=== PATIENT | female | born 1960 | race Caucasian/White ===

== ENCOUNTER 2024-11-09 08:39 | Emergency (ER) | payer MEDICARE, OTHER, SELFPAY ==
[2024-11-09] VITALS (10 sets, daily range): BP systolic 183–237; BP diastolic 91–112; PULSE 66–85; RESP 18; TEMP 36.9; O2SAT 95–98; BMI 37.8
--- NOTE | 2024-11-09 09:57 | ED_ITS ---
HPI - URI/Sore Throat General Chief Complaint: Upper Respiratory Symptoms Stated Complaint: COUGH/CONGESTED Time Seen by Provider: 11/09/24 09:47 Source: patient Mode of arrival: Ambulatory History of Present Illness HPI Narrative: Patient here with . Complaints of cough cold congestion runny nose for the past 2 nights. was sick with the same symptoms and has resolved. Patient and are traveling through. Blood pressure noted. She has been taking [id number] cold medications. Denies any chest pain shortness of breath. Patient states at her primary care they usually do manual blood pressure Related Data Previous Rx's Medication Instructions Recorded albuterol sulfate 90 mcg/actuation 2 inhalation inhalation QID PRN 11/09/24 aerosol inhaler (Ventolin HFA) shortness of breath or wheezing #6.7 grams benzonatate 100 mg capsule 100 mg PO TID PRN cough #20 caps 11/09/24 fluticasone propionate 50 1 spray intranasal BID #16 grams 11/09/24 mcg/actuation nasal spray,suspension (Flonase Allergy Relief) Allergies Allergy/AdvReac Type Severity Reaction Status Date / Time No Known Drug Allergies Allergy Verified 11/09/24 09:08 Review of Systems Review of Systems Narrative: GENERAL: Negative chills, fatigue, malaise, fever, sweats. HEENT: Positive runny nose and sinus pain, negative ear pain, sore throat RESPIRATORY: Negative dyspnea, positive cough CARDIOVASCULAR: Negative chest pain, palpitations GASTROINTESTINAL: Negative vomiting, nausea, abdominal pain : Negative dysuria, frequency, hematuria MUSCULOSKELETAL: Negative muscle or bony pain SKIN: Negative rash, skin lesions NEUROLOGIC: Negative weakness, numbness ROS Unobtainable: All systems reviewed & are unremarkable except as noted in HPI and below Patient History Social History Smoking Status: Never smoker Smoking Status: Never smoker Exam Narrative Exam Narrative: GENERAL: in no distress, not toxic not dyspneic HEAD: Normocephalic. EYES: Pupils equal round ENT: Mucous membranes moist. Boggy erythematous bilateral nasal passages with clear rhinorrhea, patient sounds congested NECK: Trachea midline. CARDIOVASCULAR: Regular rate and rhythm RESPIRATORY: Clear to auscultation. Breath sounds equal bilaterally. No wheezes, rales, or rhonchi. GASTROINTESTINAL: Abdomen soft, non-tender EXTREMITIES: No gross deformities. BACK: No flank tenderness. NEURO: AOx4. Clear speech SKIN: Warm and dry PSYCH: Not anxious, is cooperative Initial Vital Signs Initial Vital Signs: Vital Signs Pulse Rate 85 11/09/24 08:59 Pulse Oximetry 95 11/09/24 08:59 Course Orders Ordered: Discontinued Medications Benzonatate (Benzonatate 100 Mg Capsule) 100 mg PO NOW ONE Stop: 11/09/24 09:59 Last Admin: 11/09/24 10:24 Dose: 100 mg Documented By: PILY Hydralazine HCl (Hydralazine 10 Mg Tablet) 10 mg PO NOW ONE Stop: 11/09/24 10:42 Last Admin: 11/09/24 10:48 Dose: 10 mg Documented By: PILY Hydralazine HCl (Hydralazine 25 Mg Tablet) 25 mg PO NOW ONE Stop: 11/09/24 11:04 Last Admin: 11/09/24 11:39 Dose: 25 mg Documented By: KEYONA Oxymetazoline HCl (Oxymetazoline Nasal [place] 30 Ml) 2 sprays NASAL NOW ONE Stop: 11/09/24 09:59 Last Admin: 11/09/24 10:23 Dose: 2 sprays Documented By: PILY Vital Signs Vital signs: Vital Signs - 8 hr 11/09/24 08:59 11/09/24 09:00 11/09/24 09:00 Temperature Pulse Rate 85 80 Respiratory Rate Blood Pressure 197/102 H Pulse Oximetry 95 95 Oxygen Delivery Method 11/09/24 09:05 11/09/24 09:30 11/09/24 09:30 Temperature 98.4 F Pulse Rate 80 71 Respiratory Rate 18 Blood Pressure 197/102 H 199/107 H Pulse Oximetry 95 95 Oxygen Delivery Method Room Air 11/09/24 10:00 11/09/24 10:00 11/09/24 10:30 Temperature Pulse Rate 68 68 Respiratory Rate Blood Pressure 204/100 H Pulse Oximetry 95 96 Oxygen Delivery Method 11/09/24 10:30 11/09/24 10:48 11/09/24 11:00 Temperature Pulse Rate 70 66 Respiratory Rate Blood Pressure 211/100 H 211/100 H Pulse Oximetry 98 Oxygen Delivery Method 11/09/24 11:00 11/09/24 11:39 Temperature Pulse Rate 74 Respiratory Rate Blood Pressure 237/112 H 183/101 H Pulse Oximetry Oxygen Delivery Method MDM - URI/Sore Throat Lab Data Labs: Lab Results 11/09/24 Range/Units 09:00 SARS-CoV-2 (PCR) Negative (Negative) Influenza A (RT-PCR) Flu a positive H (NEGATIVE) Influenza B (RT-PCR) Flu b negative (NEGATIVE) RSV (PCR) Negative (Negative) [facility] Narrative Medical decision making narrative: Patient here with . Complaints of cough cold congestion runny nose for the past 2 nights. was sick with the same symptoms and has resolved. Patient and are traveling through. Blood pressure noted. She has been taking [id number]-osk-ibduulb cold medications. Denies any chest pain shortness of breath. Patient states at her primary care they usually do manual blood pressure After history and exam, Afrin spray Tessalon Perles respiratory panel, exam is reassuring. No imaging or blood work indicated, repeat blood pressure using manual MDM Medical records reviewed: No recent visits for this complaint Differential considered: Includes but not limited to influenza COVID rhino virus bronchitis seasonal allergies Lab Test results independently reviewed as above. Pertinent findings: Positive influenza Re-evaluations: 10:37 a.m.. Updated patient results. No antibiotics indicated at this time. Patient outside window for Tamiflu. She does agree for Tessalon Perle and Flonase and inhaler prescriptions. Return precautions reviewed. They will see their family doctor when they return home. Not toxic at discharge. They desire discharge home 12:07 p.m. Blood pressure 194/91 at time of discharge. Blood sugar has improved. This is likely due to her cold medications and should improve as she discontinues it. She agrees. She desires discharge home. at bedside. Discussion: Appropriate for discharge home. Exam is reassuring. Airway intact. Prescriptions provided. Return precautions reviewed they desire discharge home. Diagnosis: Influenza Discharge Plan Departure Patient Disposition: Home Clinical Impression: Influenza Instructions: DI for Influenza -- Adult Activity Restrictions/Additional Instructions: You have tested positive for the flu. No antibiotics are indicated as this is a virus. Prescriptions have been sent to your pharmacy to continue. See your family doctor in a week for re-evaluation. Return if worse if any questions or concerns. Continue your home medications. Keep well hydrated. Return if worse if any questions or concerns. Do not take xnsu-pys-kqnobfu cold medications as it will increase your blood pressure. Prescriptions: New benzonatate 100 mg capsule 100 mg PO TID PRN (Reason: cough) Qty: 20 0RF fluticasone propionate [Flonase Allergy Relief] 50 mcg/actuation spray,suspension 1 spray intranasal BID Qty: 16 0RF Rx Instructions: administer into each nostril albuterol sulfate [Ventolin HFA] 90 mcg/actuation HFA aerosol inhaler 2 inhalation INHALATION QID PRN (Reason: shortness of breath or wheezing) Qty: 6.7 0RF Stand Alone Forms: Patient Portal/API/Survey
[2024-11-09 10:00] LABS: Influenza A - CEPHEID Flu A POSITIVE (NEGATIVE); Influenza B - CEPHEID Flu B NEGATIVE (NEGATIVE); Respiratory Syncytial Virus Negative (Negative)
[2024-11-09 10:02] LABS: COVID-19 CEPHEID 4-PLEX PCR Negative (Negative)
--- NOTE | 2024-11-09 10:18 | PC.NURSE ---
This RN informed provider of elevated blood pressure of this patient 204/104. Provider states that patient took over the counter cough syrup which is what he says is elevating it. I informed provider that patient takes 100mg of Losartan and patient took this dose at 0730am this morning. This RN asked if patient should still get ordered medications due to elevated blood pressure. Provider informed this RN to still give medications as ordered.
[2024-11-09] MEDS: OXYMETAZOLINE NASAL SPRAY 30 ML 2 SPRAYS NASAL (10:23)
[2024-11-09] MEDS: BENZONATATE 100 MG CAPSULE PO (10:24)
[2024-11-09] MEDS: hydrALAZINE 10 MG TABLET PO (10:48)
--- NOTE | 2024-11-09 11:09 | PC.NURSE ---
This RN informed provider of patient new blood pressure of 237/112. Provider states he will order additional medication.
[2024-11-09] MEDS: hydrALAZINE 25 MG TABLET PO (11:39)
== END 2024-11-09 12:08 | disposition home or self-care (01) ==
PROVIDERS: Emergency Provider Emergency Medicine
DX: J10.1 Influenza due to other identified influenza virus with other respiratory manifestations (principal)
CPT/HCPCS: 0241U; 99283